=== PATIENT | male | born 1945 | race Caucasian/White ===

== ENCOUNTER 2021-09-17 11:16 | Outpatient (CLI) | payer MEDICARE ==
[2021-09-17 14:53] LABS: % IRON SATURATION 37 % (20-50); IRON 114 ug/dL (45-182); TOTAL IRON BINDING CAPACITY 312 ug/dL (250-450); TRANSFERRIN 223 mg/dL (180-329)
== END 2021-09-17 11:17 | disposition home or self-care (01) ==
LOC: LAB.S 11:16
PROVIDERS: ATTEND Nurse Practitioner Family
DX: D64.9 Anemia, unspecified (principal)
CPT/HCPCS: 36415; 83540; 84466

== ENCOUNTER 2022-12-16 12:12 | Outpatient (CLI) | payer MEDICARE | END 2022-12-16 12:13 | disposition home or self-care (01) | LOC: DI 12:12 | PROVIDERS: ATTEND Internal Medicine Cardiovascular Disease | DX: I10 Essential (primary) hypertension (principal); I49.3 Ventricular premature depolarization; I08.0 Rheumatic disorders of both mitral and aortic valves; I77.810 Thoracic aortic ectasia | CPT/HCPCS: 93306 ==